=== PATIENT | female | born 1975 | race Caucasian/White ===

== ENCOUNTER 2024-12-17 11:02 | Emergency (ER) | payer SELFPAY ==
[2024-12-17 11:17] VITALS: BP 115/86; PULSE 77; RESP 18; TEMP 36.1; O2SAT 100
--- NOTE | 2024-12-17 11:20 | ED.SKABFB ---
HPI - Skin/Abscess/Foreign Bdy General Chief complaint: Skin/Abscess/Foreign Body Stated complaint: skin peeling under finger nails/redness Time Seen by Provider: 12/17/24 11:22 Source: patient Mode of arrival: ambulatory Limitations: no limitations History of Present Illness HPI narrative: 49-year-old female presented for c/o skin peeling under the fingernails to all fingers for about 1 week. This started as itchy skin colored bumps. Endorses peeling some of the skin off which leads to abrasions. Patient also reports red raised rash to right neck, right arm and leg. Onset 1 month. Denies itching or pain to these lesions. Only new product is only bath and body work scented laundry beads. Denies lip, tongue, or throat swelling, shortness of breath or wheezing. No one else in the house or any contacts with similar symptoms. 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 Has not tried anything for treatment. Related Data Home Medications ?Medication ?Instructions ?Recorded ?Confirmed ?Last Taken ?Type cyclobenzaprine 5 mg tablet 5 mg PO DAILY 12/17/24 12/17/24 Unknown History gabapentin 400 mg capsule 400 mg PO DAILY 12/17/24 12/17/24 Unknown History omeprazole 20 mg capsule,delayed 20 mg PO DAILY 12/17/24 12/17/24 Unknown History release piroxicam 10 mg capsule (Feldene) 10 mg PO DAILY 12/17/24 12/17/24 Unknown History sertraline 25 mg tablet (Zoloft) 12.5 mg PO DAILY 12/17/24 12/17/24 Unknown History Allergies Allergy/AdvReac Type Severity Reaction Status Date / Time Sulfa (Sulfonamide Allergy Mild Unknown Verified 12/17/24 11:19 Antibiotics) Review of Systems Review of Systems: CONSTITUTIONAL: Denies body aches, fever, chills, or sweats. EYES: Denies visual changes, redness, or discharge. ENT: Denies rhinorrhea, congestion CARDIOVASCULAR: Denies chest pain, palpitations, or edema. RESPIRATORY: Denies cough or dyspnea. GASTROINTESTINAL: Denies abdominal pain, nausea, vomiting, or diarrhea. SKIN: reports rash on neck and fingers MUSCULOSKELETAL: Denies back pain, joint pain, or myalgia. NEUROLOGIC: Denies headache, numbness, tingling, or weakness. PMFSH Comments At time of signature, I have reviewed and agree with nursing past medical, surgical, social and family history unless otherwise noted. Please see nursing chart for further information. There is no relevant family history pertinent to the presenting complaint Exam Narrative: GENERAL: Well-appearing HEAD: Normocephalic, atraumatic. EYES: conjunctivae clear, and EOMI. ENT: Mucous membranes moist. Oropharynx without edema, erythema or lesions. NECK: Supple. No lymphadenopathy CHEST: Clear to auscultation. HEART: Regular rate and rhythm. SKIN: Warm, dry. Bilateral hands distal phalanxes under nails with dry peeling skin, petechial lesions, some avulsed areas c/w reports of peeling the skin, no active bleeding or blisters. Scattered skin colored papules c/w dyshidrotic eczema. Right neck and chest, right upper medial arm, and right medial thigh with erythematous round lesions; no fluctuance or induration. NEURO: Alert and oriented x3. Course Course Emergency Course: Patient is aware of diagnosis, understands and agrees to treatment plan. Anticipatory guidance given. Patient agrees to follow-up as directed and is aware of reasons to seek care at the emergency department. Portions of this record may have been created with voice recognition software Level of Care: Express Care Visit Vital Signs Vital signs: Vital Signs Temperature 97.0 F L 12/17/24 11:17 Pulse Rate 77 12/17/24 11:17 Respiratory Rate 18 12/17/24 11:17 Blood Pressure 115/86 12/17/24 11:17 Pulse Oximetry 100 12/17/24 11:17 Oxygen Delivery Room Air 12/17/24 11:17 Temperature 97.0 F L 12/17/24 11:17 Pulse Rate 77 12/17/24 11:17 Respiratory Rate 18 12/17/24 11:17 Blood Pressure 115/86 12/17/24 11:17 Pulse Oximetry 100 12/17/24 11:17 Oxygen Delivery Room Air 12/17/24 11:17 Reviewed MDM - Skin/Abscess/Foreign Bdy MDM Narrative Medical decision making narrative: Discussed physical exam findings most consistent with dyshidrotic eczema to the fingers as well as contact dermatitis to the neck. Reviewed RX. Advised supportive measures and signs/symptoms to go to the ER. Pt is appropriate for outpt treatment and f/u. Differential Diagnosis Differential diagnosis: Likely abscess of skin or subcutaneous tissue, viral exanthem, dermatophytosis, urticaria, herpes zoster, cellulitis, eczema, insect bites, impetigo and contact dermatitis Discharge Plan Discharge Clinical Impression: Contact dermatitis Patient Disposition: Home Condition: Stable Instructions: Antibiotic Form, Contact Dermatitis (ED), Dyshidrotic Eczema (ED) Additional Instructions: Take steroids as directed. You can take Zyrtec or Claritin to help reduce itching You can apply neosporin to the open areas Aquaphor to the hands to reduce dryness Cool compresses to the sites of itching, avoid hot water. Avoid scratching to reduce the risk of infection Avoid scented products such as lotions soaps detergents etc Follow up with your primary care provider as needed in 1 week Go to the ER for worsening symptoms or concerns (lip, tongue, throat swelling/itching, trouble breathing etc) Patient Language: [place] Citizen Prescriptions: New prednisone 20 mg tablet 20 mg PO DAILY Qty: 12 0RF Rx Instructions: take 3 tablets daily for 2 days, then 2 tablets daily for 2 days then 1 tablet daily for 2 days No Action gabapentin 400 mg capsule 400 mg PO DAILY cyclobenzaprine 5 mg tablet 5 mg PO DAILY sertraline [Zoloft] 25 mg tablet 12.5 mg PO DAILY omeprazole 20 mg capsule,delayed release(DR/EC) 20 mg PO DAILY piroxicam [Feldene] 10 mg capsule 10 mg PO DAILY Follow-up/Referrals: Abelardo,Randy Perera MD [Primary Care Provider]
--- OUTSIDE RECORDS SUMMARY | 2024-12-17 11:38 | XMS_ITS | Clinical Summary ---
Author Organization [facility] Address [address] [place] [address] Care Team Providers Care Energy Crop Farmer Name Role Phone Randy Zhou MD Primary Care Provider [phone] Source Comments [facility] Affiliates and Associated Physician Practices is amultiple site organization consisting of ambulatory clinics and hospital sitesin [place], [place], [place] and [place]. This disclosure is being madepursuant to the Care Everywhere program and may not contain all information available regarding this patient. Last updated 18.[facility] Allergies Active Allergy Reactions Criticality Noted Date Comments Sulfa Drugs Other 08/23/2018 Unsure of reaction as a child. Medications * Be aware that medications may not be up to date on this document. Alwaysverify current medications with the patient. DISULFIRAM PO Active Sertraline HCl (ZOLOFT PO) Active BACLOFEN PO Active cyclobenzaprine (FLEXERIL) 10 MG tablet Take 10 mg by mouth 2 times daily Active Active Problems Problem Noted Date Diagnosed Date Knee effusion, right 10/25/2018 Primary osteoarthritis of right knee 08/23/2018 Social History Tobacco Use Types Packs/Day Years Used Date Smoking Tobacco: Every Day Cigarettes 1 24 Smokeless Tobacco: Never Comments Unknown Sex and Gender Information Value Date Recorded Sex Assigned at Not on file Legal Sex Female 12:58 PM CDT Gender Identity Not on file Sexual Orientation Not on file Last Filed Vital Signs Vital Sign Reading Time Taken Comments Blood Pressure 117/81 08/23/2018 9:13 AM CDT Pulse 90 08/23/2018 9:13 AM CDT Temperature 37.1 C (98.7 F) 08/23/2018 9:13 AM CDT Respiratory Rate - - Oxygen Saturation - - Inhaled Oxygen Concentration - - Weight 71.6 kg (157 lb 14.4 oz) 10/25/2018 9:47 AM CDT Height 165.1 cm (5' 5) 10/25/2018 9:47 AM CDT Body Mass Index 26.28 10/25/2018 9:47 AM CDT Plan of Treatment Health Maintenance Due Date Last Done Comments COLOGUARD (AGES 45-75) - COL ON CA SCREENING 1976 COLON MONITORING 1976 COLONOSCOPY - COLON CA SCREENING 1976 CT COLONOGRAPHY - COLON CA SCREENING 1976 Colorectal Cancer Screening 1976 FIT - COLON CA SCREENING 1976 FLEX SIG - COLON CA SCREENING 1976 LIPID TESTING 1976 MAMMOGRAM 1976 HIV SCREENING 1991 HEPATITIS C SCREENING 02/27/1994 DTAP/TDAP/TD VACCINES (1 - Tdap) 1995 HEPATITIS B VACCINE (1 of 3 - 19+ 3-dose series) 1995 PNEUMOCOCCAL VACCINE (1 of 2 - PCV) 1995 SCREENING FOR DIABETES 10/25/2018 COVID-19 VACCINE (1 - 2023-2 5 season) 2023 DEPRESSION SCREENING 04/30/2024 INFLUENZA VACCINE (#1) 2024 ZOSTER VACCINE (1 of 2) 2026 HIB VACCINE Aged Out No longer eligi ble based on patient's age to complete this topic HPV VACCINE Aged Out No longer eligi ble based on patient's age to complete this topic MENINGOCOCCAL (Group B) VACC INE SHARED DECISION-MAKING Aged Out No longer eligibl e based on patient's age to complete this topic MENINGOCOCCAL GROUPS A/C/Y/W VACCINE Aged Out No longer eligible b ased on patient's age to complete this [place] [address] [facility] Care Teams Energy Crop Farmer Relationship Specialty Start Date End Date Randy Zhou MD [address] [facility] [address] [place] [id number] PCP - General 08/14/18
--- OUTSIDE RECORDS SUMMARY | 2024-12-17 11:38 | XMS_ITS | Clinical Summary ---
Author Organization [facility] Address [address] [place] [address] Phone Care Team Providers Care Can Dryer Name Role Phone Randy Zhou MD Primary Care Provider [phone] Provider, None Unavailable Unavailable Allergies Active Allergy Reactions Criticality Noted Date Comments Sulfa Antibiotics Vomiting 09/30/2015 Medications VENTOLIN HFA 108 (90 Base) MCG/ACT Aerosol Solution INL 2 PFS PO Q 4 H PRN 9 9 Active gabapentin (NEURONTIN) 300 MG Capsule 3 times daily. 3 Active baclofen (LIORESAL) 20 MG Tablet Take 20 mg by mouth 3 times daily. Active dicyclomine (BENTYL) 10 MG Capsule Take 10 mg by mouth 3 times daily as needed (Irritable bowel). Active sertraline (ZOLOFT) 100 MG Tablet Take 150 mg by mouth daily. Active omeprazole (PriLOSEC) 20 MG CAPSULE DELAYED RELEASE Take 20 mg by mouth every morning (before breakfast). Active aspirin 81 MG Chewable Tablet Take 1 Tablet by mouth daily. 30 Tablet 3 Active ondansetron (ZOFRAN-ODT) 4 MG TABLET DISPERSIBLE Take 1 Tablet by mouth every 6 hours as needed for Nausea - 1st line. 10 Tablet 3 Active polyethylene glycol (GLYCOLAX, MIRALAX) 17 g PackIndications :Constipation Take 1 Packet by mouth 2 times daily as needed for Constipation - 1st line. Dissolve in 4-8 oz of liquid. Indications: Constipation 90 Packet 3 Active senna (SENOKOT) 8.6 MG Tablet Take 1 Tablet by mouth 2 times daily as needed for Constipation - 2nd line. 30 Tablet Active Active Problems Problem Noted Date Diagnosed Date Left arm weakness 01/23/2023 Chest pain 01/23/2023 Chronic back pain 01/23/2023 Anxiety and depression 01/23/2023 Tobacco dependence 01/23/2023 Family History Medical History Relation Name Comments Heart Surgery Brother Heart Attack Father Chronic Obstructive Pulmonary Disease Mother Diabetes Mother Heart Disease Mother Hypertension Mother Breast Cancer Sister Relation Name Status Comments Brother Alive Father Mother Alive Sister Alive Social History Tobacco Use Types Packs/Day Years Used Date Smoking Tobacco: Former Cigarettes 0.5 20 Smokeless Tobacco: Never Alcohol Use Standard Drinks/Week Comments Never 0 (1 standard drink = 0.6 oz pur e alcohol) AUDIT-C Answer Date Recorded Frequency of Alcohol Consumption Never 08/02/2019 Average Number of Drinks Not on file 020 Frequency of Binge Drinking Not on file 07/2019 Sexually Active Control Partners Comments Not Currently Comments No Sex and Gender Information Value Date Recorded Sex Assigned at Not on file Legal Sex Female 12:20 AM CDT Gender Identity Not on file Sexual Orientation Not on file Last Filed Vital Signs Vital Sign Reading Time Taken Comments Blood Pressure 114/66 01/25/2023 4:00 PM CDT Pulse 66 01/25/2023 4:00 PM CDT Temperature 36.9 C (98.5 F) 01/25/2023 4:00 PM CDT Respiratory Rate 16 01/25/2023 4:00 PM CDT Oxygen Saturation 98% 01/25/2023 4:00 PM CDT Inhaled Oxygen Concentration - - Weight 70.3 kg (155 lb) 01/25/2023 11:38 AM CDT Height 165.1 cm (5' 5) 01/25/2023 11:38 AM CDT Body Mass Index 25.79 01/25/2023 11:38 AM CDT Plan of Treatment Health Maintenance Due Date Last Done Comments Hepatitis C Virus (HCV) Screening 1976 Mammogram 1976 TdaP Immunization 1976 Hepatitis B Immunization (1 of 3 - 19+ 3-dose series) 1995 Pap Smear 1997 Cervical Cancer Screening (CCS) 2006 HPV/Cotest 2006 Discussion re Starting/Frequency of Mammograms 2016 Cologuard 2021 Colonoscopy 2021 Colorectal Cancer Screening 2021 Immunochemical Fecal Occult Blood 2021 SARS-COV-2 Immunization ( season) 2023 Influenza Immunization (#1) 2024 12/0 12/2018, 01/27/2018, 01/29/2017, Additional history exists Respiratory Syncytial Virus (RSV) Immunization (Adult) (1 - 1-dose 75+ series) 2051 Human Papillomavirus (HPV) Immunization Aged Out No longer eligible based on patient's age to complete this topic Meningococcal Immunization (ACWY) Aged Out No longer eligible based on patient's age to complete this topic Pneumococcal Immunization Combined Aged Out No longer eligible based on patient's age to complete this topic Rotavirus Immunization Aged Out No lo nger eligible based on patient's age to complete this topic Insurance MEDICAID [employer] Advance Directives * Full Code (Latest Code Status on File) Date Activated Date Inactivated Comments 01/23/2023 9:53 AM 01/25/2023 6:31 PM CPR-Full Donaldo atment: FULL ARREST: Attempt Resuscitation/CPR wit intubation and mechanical ventilation. PRE-ARREST: Use entire range of life support measures to stabilize the patient. * Full Code Date Activated Date Inactivated Comments 08/03/2019 8:55 AM 08/03/2019 2:40 PM CPR-Full Treat ment: FULL ARREST: Attempt Resuscitation/CPR wit intubation and mechanical ventilation. PRE-ARREST: Use entire range of life support measures to stabilize the patient. Care Teams Can Dryer Relationship Specialty Start Date End Date Randy Zhou MD [address] [facility] [address] [place] [id number] PCP - General Family Medicine 07/27/18 Provider, None [place] 07/27/18
--- OUTSIDE RECORDS SUMMARY | 2024-12-17 11:38 | XMS_ITS | Encounter Summary ---
Author Organization [facility] Address [address] [place] [address] Phone Care Team Providers Care Access Tech Name Role Phone Randy Zhou MD Primary Care Provider [phone] Provider, None Unavailable Unavailable Encounter Details Date Type Department Care Team (Late st Contact Info) Description 01/26/2023 Telephone [facility] Med Surg [address] [phone] Sister Michael Moore, RN [place] Social History Tobacco Use Types Packs/Day Years [...] on file Sexual Orientation Not on file COVID-19 Exposure Response Date Recorded In the last 10 days, have yo u been in contact with someone who was confirmed or suspected to have Coronavirus/COVID-19? No / Unsure 01/23/2023 7:53 AM CDT documented as of this encounter Plan of Treatment Not on file documented as of this encounter Visit Diagnoses Not on filedocumented in this encounter Care Teams Access Tech Relationship Specialty Start Date End Date Randy Zhou MD [address] [place] [address] [address] [place] [address] PCP - General Family Medicine 07/27/18 Provider, None [place] 07/27/18 documented as of this encounter
== END 2024-12-17 11:43 | disposition home or self-care (01) ==
PROVIDERS: Emergency Provider Nurse Practitioner Family; PCP Family Medicine
DX: L25.9 Unspecified contact dermatitis, unspecified cause (principal); L30.1 Dyshidrosis [pompholyx]
CPT/HCPCS: 99213; G0463